=== PATIENT | male | born 1960 | race Asian ===

== ENCOUNTER 2017-06-05 12:24 | Emergency (ER) | payer OTHER ==
[~2017-06-05] VITALS: Ht 170.2 cm; Wt 59.1 kg
[~2017-06-05 12:24] MED LIST: ALBU8HFA IH; AMLO-512 PO; MONT10TA21 PO; PRED5 PO
[2017-06-05 12:32] VITALS: BP 143/96
== END 2017-06-05 13:25 | disposition left against medical advice (07) ==
LOC: EMS 12:32
DX: R05 Cough (principal); Z53.21 Procedure and treatment not carried out due to patient leaving prior to being seen by health care provider